=== PATIENT | female | born 1985 | race Caucasian/White ===

== ENCOUNTER 2018-05-15 05:18 | Inpatient (IN) | payer BC ==
[2018-05-15] MEDS ORDERED: Bicitra 30 ML UDCUP PO SCH (05:25)
[2018-05-15] MEDS ORDERED: Clindamycin/D5W 900 MG in Premix Bag 1 BAG IVPB SCH (05:25)
[2018-05-15] MEDS ORDERED: Promethazine HCl 25 MG/ML VIAL IM PRN ×2 (05:25→08:59)
[2018-05-15] MEDS ORDERED: Ondansetron PF 4 MG/2 ML Vial IVP PRN ×2 (05:25→08:59)
[2018-05-15 05:45] VITALS: BMI 29.2
[2018-05-15 06:13] LABS: Hemoglobin 13.2 g/dL (12.0-16.0); Mean Corpuscular HGB CONC 32.5 g/dL (32.0-36.0); Mean Corpuscular Hemoglobin 32.7 pg (27.0-31.0); Mean Platelet Volume 8.6 fL (7.4-10.4); Platelet Count 152 thou/uL (130-400); RBC Distribution Width 11.9 % (11.5-14.5); Red Blood Cell (RBC) Count 4.03 mill/uL (4.20-5.40); White Blood Cell (WBC) Count 4.7 thou/uL (4.8-10.8)
[2018-05-15 06:52] LABS: Syphilis Antibody Nonreactive (Nonreactive); Syphilis Antibody Index 0.03 S/CO (<1.00 Non-Reactive)
[2018-05-15 06:53] LABS: HBSAg Index 0.26 S/CO (0-0.99); Hep B Surf Ag Non-Reactive S/CO (NonReactive)
[2018-05-15] MEDS: Lactated Ringer's 1,000 ML IV SCH ×2 (07:12→15:15)
[2018-05-15] MEDS ORDERED: MORPHINE 5 MG/10 ML PF VIAL ONE (07:48)
[2018-05-15] MEDS ORDERED: Ondansetron PF 4 MG/2 ML Vial ONE ×2 (07:49→15:00)
[2018-05-15] MEDS ORDERED: Metoclopramide HCl 10 MG/2 ML VIAL ONE (07:49)
[2018-05-15] MEDS ORDERED: ePHEDrine/0.9% NaCl/PF SYRINGE 50 mg/10 ml ONE (08:11)
[2018-05-15] MEDS ORDERED: EPINEPHrine 1 MG/ML AMP ONE (08:13)
[2018-05-15] MEDS ORDERED: Atropine Sulfate 0.4 mg/1 ml Vial ONE ×2 (08:15→15:00)
[2018-05-15] MEDS ORDERED: Ketorolac Tromethamine 30 MG/ML VIAL ONE ×2 (08:47→15:00)
[2018-05-15] MEDS ORDERED: L&D-Morphine 4 MG/ML VIAL SLOW IVP PRN (08:59)
[2018-05-15] MEDS ORDERED: diphenhydrAMINE 50 MG/ML VIAL IVP PRN (08:59)
[2018-05-15] MEDS ORDERED: Promethazine HCl 25 MG SUPP PR PRN (08:59)
[2018-05-15] MEDS ORDERED: Naloxone HCl 0.4 mg/ml Vial IVP PRN ×2 (08:59)
[2018-05-15] MEDS ORDERED: Naloxone HCl 0.4 mg/ml Vial IV PRN (08:59)
[2018-05-15] MEDS ORDERED: Eucerin (Mineral Oil/Petrolatum,White) 30 gm Jar TOP PRN (08:59)
[2018-05-15] MEDS ORDERED: HYDROmorphone 2 MG/ML VIAL SLOW IVP PRN (08:59)
[2018-05-15] MEDS ORDERED: Ondansetron HCl/PF 4 MG/2 ML Vial IVP PRN (08:59)
[2018-05-15] MEDS ORDERED: Meperidine HCl/PF 25 MG/ML VIAL SLOW IVP PRN (08:59)
[2018-05-15] MEDS ORDERED: Ketorolac Tromethamine 30 MG/ML VIAL IVP SCH (09:00)
[2018-05-15] MEDS ORDERED: Communication Order-Pharmacy FS SCH (09:00)
[2018-05-15] MEDS ORDERED: Docusate 100 MG CAP PO PRN (09:00)
[2018-05-15] MEDS ORDERED: Oxytocin 10 UNITS/ML VIAL ONE (09:10)
[2018-05-15] MEDS ORDERED: Acetaminophen 325 MG TAB PO PRN (09:51)
[2018-05-15] MEDS ORDERED: Bisacodyl 10 MG SUPP PR PRN (09:51)
[2018-05-15] MEDS ORDERED: Lanolin Ointment 7 GM TUBE TOP PRN (09:51)
[2018-05-15] MEDS ORDERED: HYDROcodone/Acetaminophen 5/325 mg Tablet PO PRN ×3 (09:51→21:00)
[2018-05-15] MEDS ORDERED: diphenhydrAMINE 25 MG CAP PO PRN (09:51)
[2018-05-15] MEDS ORDERED: NS / Oxytocin 40 units/1000ml 1,000 ML IV SCH (10:00)
[2018-05-15] MEDS: Ketorolac Tromethamine 30 MG/ML VIAL IVP SCH ×3 (13:56→23:12)
[2018-05-15] MEDS: Ibuprofen 800 MG TAB PO SCH (13:57)
[2018-05-15] MEDS ORDERED: ePHEDrine 50 MG/ML VIAL ONE (15:00)
[2018-05-15] MEDS: Clindamycin/D5W 900 MG in Premix Bag 1 BAG IVPB SCH (15:14)
[2018-05-15] MEDS: Docusate Calcium (SURFAK) 240 MG CAP PO SCH (21:19)
[2018-05-15] MEDS: Simethicone Chewable 80 MG TAB PO PRN (21:19)
[2018-05-15] MEDS ORDERED: Sodium Chloride 0.9% 10 ML ONE (23:58)
[2018-05-16] MEDS: Clindamycin/D5W 900 MG in Premix Bag 1 BAG IVPB SCH ×2 (00:28→08:29)
[2018-05-16] MEDS: HYDROcodone/Acetaminophen 5/325 mg Tablet PO PRN ×2 (05:10→21:42)
[2018-05-16] MEDS: Ketorolac Tromethamine 30 MG/ML VIAL IVP SCH ×4 (05:11→22:03)
[2018-05-16] MEDS: Lactated Ringer's 1,000 ML IV SCH ×4 (05:59→22:15)
[2018-05-16] MEDS: Ibuprofen 800 MG TAB PO SCH ×4 (06:09→21:42)
[2018-05-16 07:25] LABS: Hemoglobin 10.6 g/dL (12.0-16.0); Mean Corpuscular HGB CONC 33.2 g/dL (32.0-36.0); Mean Corpuscular Hemoglobin 33.8 pg (27.0-31.0); Mean Platelet Volume 8.5 fL (7.4-10.4); Platelet Count 127 thou/uL (130-400); RBC Distribution Width 11.9 % (11.5-14.5); Red Blood Cell (RBC) Count 3.13 mill/uL (4.20-5.40); White Blood Cell (WBC) Count 7.5 thou/uL (4.8-10.8)
[2018-05-16] MEDS: Docusate Calcium (SURFAK) 240 MG CAP PO SCH ×2 (08:28→21:41)
[2018-05-16] MEDS: Prenatal Vitamin 1 TAB PO SCH (08:28)
[2018-05-16] MEDS: Simethicone Chewable 80 MG TAB PO PRN (08:29)
[2018-05-17] MEDS: Lactated Ringer's 1,000 ML IV SCH (01:20)
[2018-05-17] MEDS: Ketorolac Tromethamine 30 MG/ML VIAL IVP SCH (01:20)
[2018-05-17] MEDS: Ibuprofen 800 MG TAB PO SCH (05:08)
[2018-05-17 05:25] VITALS: TEMP 97.8
[2018-05-17 08:02] VITALS: BP 101/57
[2018-05-17] MEDS: Docusate Calcium (SURFAK) 240 MG CAP PO SCH (08:55)
[2018-05-17] MEDS: Prenatal Vitamin 1 TAB PO SCH (08:55)
--- NOTE | 2018-05-17 10:40 | OP ---
DATE OF PROCEDURE: 05/15/2018 RESIDENT SURGEON: Ruth Saeed MD. [employer]ENT SURGEON: Dede Rodriguez MD. PREOPERATIVE DIAGNOSES: 1. Term intrauterine at 39 and 3/7th weeks. 2. Prior section. 3. Declines trial of labor. POSTOPERATIVE DIAGNOSES: 1. Term intrauterine at 39 and 3/7th weeks. 2. Prior section. 3. Declines trial of labor. PROCEDURE: Repeat low transverse section. ANESTHESIA: Spinal catheterization. FINDINGS: 1. Minimal scarring and adhesions secondary to previous adhesion prevention measures. 2. Vigorous male infant, 7 pounds 11 ounces, Apgars 8 and 9. 3. Normal uterus, tubes, and ovaries. COMPLICATIONS: None. SPECIMENS REMOVED: Cord blood. BLOOD LOSS: 600 mL. DESCRIPTION OF PROCEDURE: After thorough consent and counseling, Mrs. Alvarez was taken to the operating room and an adequate level of anesthesia was obtained via spinal catheterization. The patient was prepped and draped in the usual sterile fashion for abdominal surgery. A Stewart was placed in the bladder which was drained of clear urine. Attention was then turned to performing the repeat low-transverse section. A Pfannenstiel incision was made and the old scar was excised. The incision was carried sharply to the fascia, which was also sharply incised. The midline was identified. The rectus muscles were retracted laterally. The abdominal peritoneal cavity was entered with usual safeguards carried out. A retractor was placed and a bladder flap was created on the vesicouterine peritoneum. A bladder blade was then placed. A low-transverse incision was made on the well-developed lower uterine segment. Upon entering the amniotic sac, a copious amount of clear amniotic fluid was visualized. The was noted to be vertex presentation in the occiput anterior position, still high in the pelvis. Head was delivered and baby was bulb suctioned on the abdomen. Shoulders and body were then delivered in an atraumatic fashion. The cord was double clamped and cut and the was handed to the neonatology team in attendance for the delivery. The was a vigorous viable male weighing 7 pounds 11 ounces with Apgars of 8 and 9 obtained at 1 and 5 minutes respectively. Cord blood was obtained. The placenta was manually removed from the uterus. The uterus was exteriorized and good tone was noted. Uterine cavity was cleared of any remaining clot and fluid. The low-transverse incision was closed with a running locking ligature of #1 chromic. A 2nd imbricating layer was placed to facilitate strength and hemostasis. Several tyyghp-[id number]-siozp ligatures of 0 Vicryl were also placed for strength in the low-transverse incision. The vesicouterine peritoneum was reapproximated to the lower segment with a running ligature of 3-0 Monocryl suture. The posterior cul-de-sac gutters were cleared of clot and fluid. Seprafilm was applied to the low-transverse incision and to the anterior aspect of the uterus for adhesion prevention. The uterus was returned to the abdomen and good tone and hemostasis was again appreciated. The incision was inspected and noted to be hemostatic. Lap, sponge, and needle counts were correct. The peritoneum was then closed with a running ligature of 2-0 Vicryl. The rectus muscles were reapproximated in the midline with interrupted ligatures of both 2-0 Vicryl and #1 chromic suture. The fascia was then closed with two ligatures of 0 Vicryl suture which were tied in the midline. Meticulous hemostasis was obtained with Bovie cauterization. Good fascial integrity was appreciated. Subcutaneous tissues were closed with interrupted ligatures of 2-0 plain. The skin was closed with a subcuticular stitch of 4-0 Monocryl. The incision was then dressed with Dermabond. A pressure dressing and ice packs were subsequently placed. Lap, sponge, and needle counts were correct x3. Estimated blood loss in the surgical procedure was approximately 600 mL. The patient was taken to the recovery room in good condition. Immediately following the surgery, the patient and family were made aware of the surgical procedure and operative findings. Mother and baby were doing well postoperatively. The patient and her were very appreciative of the care rendered here at [facility] this morning. Job ID: [id number]
== END 2018-05-17 12:30 | disposition home or self-care (01) | DRG 788 ==
LOC: L&D 05:18 → 3SW 12:43
PROVIDERS: ADMIT Obstetrics & Gynecology; ATTEND Obstetrics & Gynecology
PROC: 10D00Z1 Extraction of Products of Conception, Low, Open Approach (ICD-10-PCS; principal; 2018-05-15)
PROC: 3E0P05Z Introduction of Adhesion Barrier into Female Reproductive, Open Approach (ICD-10-PCS; 2018-05-15)
DX: O34.211 Maternal care for low transverse scar from previous cesarean delivery (principal); O99.89 Other specified diseases and conditions complicating pregnancy, childbirth and the puerperium; N73.6 Female pelvic peritoneal adhesions (postinfective); Z3A.39 39 weeks gestation of pregnancy; Z37.0 Single live birth
CPT/HCPCS: 36415; 51702; 85027; 86780; 86850; 86900; 86901; 87340; J0171; J0461; J1885; J2175; J2270; J2405; J2590; J2765; J3490